=== PATIENT | female | born 1950 | race African-American/Black ===

== ENCOUNTER 2020-04-05 18:57 | Emergency (ER) | payer SELFPAY ==
[~2020-04-05] VITALS: Ht 172.7 cm; Wt 77.1 kg
[2020-04-05 19:49] VITALS: Ht 172.7 cm; Wt 77.1 kg
[2020-04-05 21:03] VITALS: BP 128/74
== END 2020-04-05 21:03 | disposition home or self-care (01) ==
LOC: ED 18:57
DX: R51.9 Headache, unspecified (principal); J00 Acute nasopharyngitis [common cold]; Z13.9 Encounter for screening, unspecified; Z59.0 Homelessness; Z88.0 Allergy status to penicillin; Z88.8 Allergy status to other drugs, medicaments and biological substances